=== PATIENT | female | born 1940 ===

== ENCOUNTER 2017-08-22 07:19 | Day surgery (SDC) | payer MEDICARE, BC ==
[2017-08-22] MEDS ORDERED: Acetaminophen-Codeine 300/30 mg Tab PO PRN (08:24)
[2017-08-22] MEDS ORDERED: Dextrose 5%/0.45% NS 1,000 ML IV SCH (08:30)
[2017-08-22] MEDS ORDERED: Lactated Ringer's 1,000 ML IV ONE (11:35)
[2017-08-22] MEDS ORDERED: Etomidate 20 mg/10ml Inj IV ONE (11:40)
[2017-08-22] MEDS ORDERED: Propofol 10 mg/ml Inj (20 ML) ONE (11:41)
[2017-08-22] MEDS ORDERED: ceFAZolin IV 1 gm in Dextrose 1 GM/50 ML BAG IVPB ONE (11:43)
[2017-08-22] MEDS ORDERED: HYDROmorphone 0.5 mg/0.5 ml ISec IVP PRN (12:19)
[2017-08-22 14:08] VITALS: PULSE 60; RESP 16
[2017-08-22 16:02] VITALS: BP 129/50; TEMP 99; O2SAT 100
--- NOTE | 2017-08-23 10:27 | OP ---
PROCEDURE DATE: 08/22/2017 PROCEDURE: Direct laryngoscopy with biopsy. SIGNIFICANT FINDINGS: Posterior pharyngeal lesion. DESCRIPTION OF PROCEDURE: The patient was brought into the room, placed in supine position. Anesthesia was initiated through ET tube. Shoulder roll was placed and neck was extended. Tooth guard was placed over the upper teeth in order to protect them. Direct laryngoscope was inserted into the oral cavity and was passed into the oropharynx and hypopharynx. The base of the tongue, vallecula, epiglottis, AE folds, false cords, true cords, arytenoids, piriform sinuses and pharyngeal amaya were brought into view. Lesion was noted on the hypopharynx on the left side posterior wall. Biopsies of the lesion were taken. Bleeding was controlled using cold water irrigation. The direct laryngoscope was removed. The tooth guard was removed. The patient was taken off anesthesia and taken to recovery room in stable manner. Carl Mcdonough MD [id number]
== END 2017-08-22 15:33 | disposition home or self-care (01) ==
LOC: EDBD → C.SDS 07:19
PROVIDERS: ATTEND Otolaryngology
DX: J39.2 Other diseases of pharynx (principal)
CPT/HCPCS: 31535; 88305; J0690; J1100; J2704; J3010; J7120